=== PATIENT | male | born 1990 | race Caucasian/White ===

== ENCOUNTER 2018-01-19 18:50 | Emergency (ER) | payer BC ==
[~2018-01-19 18:50] MED LIST: NAPROXEN EC500 MG PO
[2018-01-19 19:32] LABS: INFLUENZA A NONE DETECTED (NONE DETECT); INFLUENZA B NONE DETECTED (NONE DETECT)
[2018-01-19 19:35] LABS: HEMATOCRIT 43.9 % (39.0-50.0); HEMOGLOBIN 15.2 g/dl (14.0-18.0); IMMATURE GRANULOCYTES 0.7 % (0.0-1.0); MEAN CELL VOLUME 87.5 fL CALC (80.0-100.0); MEAN CORPUSCULAR HGB 30.3 pG CALC (26.0-32.0); MEAN CORPUSCULAR HGB CONC 34.6 g/L CALC (32.0-36.0); NEUT# 6.19 thou/uL (1.82-7.42); RED BLOOD COUNT 5.02 mill/uL (4.70-6.10); RED CELL DISTRI WIDTH 12.8 % (11.5-15.5)
[2018-01-19 19:48] LABS: URINE BILIRUBIN - DIPSTICK NEGATIVE (NEGATIVE); URINE BLOOD DIPSTICK NEGATIVE (NEGATIVE); URINE COLOR YELLOW; URINE GLUCOSE - DIPSTICK NEGATIVE (NEGATIVE); URINE KETONE TRACE mg/dL (NEGATIVE); URINE LEUK ESTERASE NEGATIVE (NEGATIVE); URINE NITRITE - DIPSTICK NEGATIVE (Negative); URINE PROTEIN - DIPSTICK 30 mg/dL (NEG-TRACE); URINE SPECIFIC GRAVITY >=1.030; URINE UROBILINOGEN - DIPSTICK 0.2 E.U./dL (0.2)
[2018-01-19 19:49] LABS: ALBUMIN 4.9 g/dL (3.2-5.0); ALKALINE PHOSPHATASE 105 u/l (38-126); ANION GAP 20 (6-22 (CALC)); BILIRUBIN, TOTAL 0.8 mg/dL (0.0-1.4); BUN 13 mg/dL (9-20); BUN/CREATININE RATIO 9 (12-20 (CALC)); CARBON DIOXIDE 27 mmol/l (22-30); CHLORIDE 99 mmol/l (95-108); CREATININE 1.4 mg/dL (0.7-1.3); GFR > 60 ML/MIN (>=60 (CALC)); GFR FOR AFR.AMER. > 60 ML/MIN (>=60 (CALC)); POTASSIUM 3.8 mmol/l (3.5-5.1); SGOT/AST 47 u/l (17-59); SGPT/ALT 84 u/l (21-72); SODIUM 142 mmol/l (137-146); TOTAL PROTEIN 9.7 g/dL (6.3-8.2)
[2018-01-19 19:52] LABS: URINE CLARITY CLEAR
[2018-01-19 19:59] LABS: URINE RBC 0-2 RBC/hpf (0-5); URINE WBC 0-2 WBC/hpf (0-5)
[2018-01-19 21:34] VITALS: BP 112/63
== END 2018-01-19 21:41 | disposition home or self-care (01) | DRG 864 ==
LOC: ED 18:50
PROVIDERS: Family Medicine
DX: R50.9 Fever, unspecified (principal); R05 Cough; R53.1 Weakness; R11.10 Vomiting, unspecified; R53.83 Other fatigue

== ENCOUNTER 2019-11-27 | Emergency (ER) | payer BC ==
[2019-11-27] MEDS ORDERED: BENZONATATE200 MG PO (17:21)
[2019-11-27] MEDS ORDERED: BUSPAR10 M1 PO (17:21)
== END 2019-11-27 18:53 | disposition home or self-care (01) | DRG 605 ==
DX: S91.331A Puncture wound without foreign body, right foot, initial encounter (principal); X58.XXXA Exposure to other specified factors, initial encounter; Y93.89 Activity, other specified; Y92.828 Other wilderness area as the place of occurrence of the external cause

== ENCOUNTER 2022-02-23 22:05 | Emergency (ER) | payer BC ==
[~2022-02-23] VITALS: Ht 185.4 cm; Wt 130.0 kg
[~2022-02-23 22:05] MED LIST changes: +BENZONATATE200 MG PO; +BUSPAR10 M1 PO
[2022-02-23 22:14] VITALS: BP 140/85
[2022-02-23] MEDS ORDERED: ZYRTEC10 MG PO (22:25)
[2022-02-23 22:31] VITALS: BP 142/87
[2022-02-23 22:38] LABS: HEMATOCRIT 39.7 % (39.0-50.0); HEMOGLOBIN 13.6 g/dl (14.0-18.0); IMMATURE GRANULOCYTES 0.2 % (0.0-5.0); MEAN CELL VOLUME 85.9 fL CALC (80.0-100.0); MEAN CORPUSCULAR HGB 29.4 pG CALC (26.0-32.0); MEAN CORPUSCULAR HGB CONC 34.3 g/dL CAL (32.0-36.0); NEUT# 4.21 thou/uL (1.82-7.42); RED BLOOD COUNT 4.62 mill/uL (4.70-6.10); RED CELL DISTRI WIDTH 13.1 % (11.5-15.5)
[2022-02-23 22:46] VITALS: BP 134/80
[2022-02-23 22:55] LABS: ALBUMIN 4.3 g/dL (3.2-5.0); ALKALINE PHOSPHATASE 92 u/l (38-126); ANION GAP 14 (6-22 (CALC)); BUN 21 mg/dL (9-20); BUN/CREATININE RATIO 16 (12-20 (CALC)); CARBON DIOXIDE 25 mmol/l (22-30); CHLORIDE 102 mmol/l (95-108); CREATININE 1.3 mg/dL (0.7-1.3); GFR FOR AFR.AMER. > 60 ML/MIN (>=60 (CALC)); GFR OTHER RACES > 60 ML/MIN (>=60 (CALC)); POTASSIUM 3.6 mmol/l (3.5-5.1); SGOT/AST 45 u/l (17-59); SODIUM 137 mmol/l (137-146); TOTAL PROTEIN 8.3 g/dL (6.3-8.2)
[2022-02-23 22:59] LABS: BILIRUBIN, TOTAL 0.4 mg/dL (0.0-1.4)
[2022-02-23 23:01] VITALS: BP 145/86
[2022-02-23 23:07] LABS: MYOGLOBIN 74 ng/mL (0 - 121)
[2022-02-23] MEDS ORDERED: SINGULAIR10 MG PO (23:43)
[2022-02-23 23:45] VITALS: BP 145/86
== END 2022-02-23 23:50 | disposition home or self-care (01) | DRG 204 ==
LOC: ED 22:05
PROVIDERS: Family Medicine
DX: R05.9 Cough, unspecified (principal); R55 Syncope and collapse; T78.40XA Allergy, unspecified, initial encounter; X58.XXXA Exposure to other specified factors, initial encounter; D72.10 Eosinophilia, unspecified; Z20.822 Contact with and (suspected) exposure to COVID-19

== ENCOUNTER 2022-03-11 09:17 | Emergency (ER) | payer OTHER, BC ==
[~2022-03-11] VITALS: Ht 185.4 cm; Wt 129.5 kg
[~2022-03-11 09:17] MED LIST changes: +SINGULAIR10 MG PO; +ZYRTEC10 MG PO
[2022-03-11 09:24] VITALS: BP 139/84
[2022-03-11] MEDS ORDERED: ZPAK PO (09:27)
[2022-03-11] MEDS ORDERED: MEDDOSEPAK PO (09:27)
[2022-03-11 09:31] VITALS: BP 129/82
[2022-03-11] MEDS ORDERED: DOXY-CAPS100 MG PO (09:46)
[2022-03-11 10:01] VITALS: BP 130/93
[2022-03-11 10:31] VITALS: BP 143/82
[2022-03-11 11:01] VITALS: BP 113/72
[2022-03-11 11:10] VITALS: BP 113/72
== END 2022-03-11 11:10 | disposition home or self-care (01) | DRG 605 ==
LOC: ED 09:17
PROC: 0HQLXZZ Repair Left Lower Leg Skin, External Approach (ICD-10-PCS; principal; 2022-03-11)
DX: S71.112A Laceration without foreign body, left thigh, initial encounter (principal); F41.9 Anxiety disorder, unspecified; F17.290 Nicotine dependence, other tobacco product, uncomplicated; W31.1XXA Contact with metalworking machines, initial encounter; Y93.89 Activity, other specified; Y92.149 Unspecified place in prison as the place of occurrence of the external cause; Y99.0 Civilian activity done for income or pay

== ENCOUNTER 2022-07-10 20:44 | Emergency (ER) | payer BC ==
[~2022-07-10] VITALS: Ht 185.4 cm; Wt 134.1 kg
[~2022-07-10 20:44] MED LIST changes: +DOXY-CAPS100 MG PO; +MEDDOSEPAK PO; +ZPAK PO
[2022-07-10 20:51] VITALS: BP 130/79
[2022-07-10 21:06] LABS: HEMATOCRIT 41.9 % (39.0-50.0); HEMOGLOBIN 14.3 g/dl (14.0-18.0); IMMATURE GRANULOCYTES 0.3 % (0.0-5.0); MEAN CELL VOLUME 87.1 fL CALC (80.0-100.0); MEAN CORPUSCULAR HGB 29.7 pG CALC (26.0-32.0); MEAN CORPUSCULAR HGB CONC 34.1 g/dL CAL (32.0-36.0); NEUT# 5.89 thou/uL (1.82-7.42); RED BLOOD COUNT 4.81 mill/uL (4.70-6.10)
[2022-07-10 21:19] LABS: ALBUMIN 4.7 g/dL (3.2-5.0); ALKALINE PHOSPHATASE 104 u/l (38-126); ANION GAP 17 (6-22 (CALC)); BILIRUBIN, TOTAL 0.4 mg/dL (0.0-1.4); BUN 15 mg/dL (9-20); BUN/CREATININE RATIO 13 (12-20 (CALC)); CARBON DIOXIDE 25 mmol/l (22-30); CHLORIDE 104 mmol/l (95-108); CREATININE 1.2 mg/dL (0.7-1.3); GFR FOR AFR.AMER. > 60 ML/MIN (>=60 (CALC)); GFR OTHER RACES > 60 ML/MIN (>=60 (CALC)); SGOT/AST 54 u/l (17-59); SODIUM 141 mmol/l (137-146); TOTAL PROTEIN 8.4 g/dL (6.3-8.2)
[2022-07-10] MEDS ORDERED: SILVADENE1 % EX (21:47)
[2022-07-10] MEDS ORDERED: DOXYCYCL HYC100 M4 PO (21:47)
[2022-07-10] MEDS ORDERED: LORTAB 1010 MG PO (21:47)
[2022-07-10 22:10] VITALS: BP 130/79
== END 2022-07-10 22:10 | disposition home or self-care (01) | DRG 935 ==
LOC: ED 20:44
PROVIDERS: Emergency Medicine
DX: T22.212A Burn of second degree of left forearm, initial encounter (principal); W38.XXXA Explosion and rupture of other specified pressurized devices, initial encounter
CPT/HCPCS: J1956

== ENCOUNTER 2022-10-07 21:48 | Emergency (ER) | payer BC ==
[~2022-10-07] VITALS: Ht 185.4 cm; Wt 131.0 kg
[~2022-10-07 21:48] MED LIST changes: +DOXYCYCL HYC100 M4 PO; +LORTAB 1010 MG PO; +SILVADENE1 % EX
[2022-10-07 22:25] VITALS: BP 129/85
[2022-10-07 22:45] VITALS: BP 122/75
[2022-10-07 23:00] VITALS: BP 130/78
[2022-10-07 23:16] VITALS: BP 121/75
[2022-10-08 01:05] VITALS: BP 153/103
== END 2022-10-07 23:51 | disposition home or self-care (01) | DRG 206 ==
LOC: ED 21:48
DX: S27.892A Contusion of other specified intrathoracic organs, initial encounter (principal); W18.30XA Fall on same level, unspecified, initial encounter; F41.9 Anxiety disorder, unspecified

== ENCOUNTER 2023-02-09 19:07 | Emergency (ER) | payer BC ==
[~2023-02-09] VITALS: Ht 185.4 cm; Wt 134.0 kg
[2023-02-09 19:20] VITALS: BP 114/65
[2023-02-09 19:30] VITALS: BP 116/66
[2023-02-09 19:50] LABS: BASO% 0.5 % (0-3); EOS% 5.2 % (0-8); HEMATOCRIT 38.6 % (39.0-50.0); HEMOGLOBIN 12.6 g/dl (14.0-18.0); IMMATURE GRANULOCYTES 0.3 % (0.0-5.0); LYMPH% 14.6 % (15-41); MEAN CELL VOLUME 88.3 fL CALC (80.0-100.0); MEAN CORPUSCULAR HGB 28.8 pG CALC (26.0-32.0); MEAN CORPUSCULAR HGB CONC 32.6 g/dL CAL (32.0-36.0); MONO% 10.1 % (2-13); NEUT# 8.18 thou/uL (1.82-7.42); NEUT% 69.3 % (42-76); RED BLOOD COUNT 4.37 mill/uL (4.70-6.10)
[2023-02-09 20:06] LABS: ALBUMIN 4.8 g/dL (3.2-5.0); ALKALINE PHOSPHATASE 85 u/l (38-126); ANION GAP 14 (6-22 (CALC)); BILIRUBIN, TOTAL 0.6 mg/dL (0.2-1.3); BUN 14 mg/dL (9-20); BUN/CREATININE RATIO 11 (12-20 (CALC)); CARBON DIOXIDE 26 mmol/l (22-30); CHLORIDE 100 mmol/l (95-108); CREATININE 1.3 mg/dL (0.7-1.3); ETHYL ALCOHOL 0 mg/dl (0-30); GFR FOR AFR.AMER. > 60 ML/MIN (>=60 (CALC)); GFR OTHER RACES > 60 ML/MIN (>=60 (CALC)); SGOT/AST 48 u/l (17-59); SODIUM 136 mmol/l (137-146); TOTAL PROTEIN 8.9 g/dL (6.3-8.2)
[2023-02-09 20:13] LABS: URINE BILIRUBIN - DIPSTICK NEGATIVE (NEGATIVE); URINE BLOOD DIPSTICK NEGATIVE (NEGATIVE); URINE COLOR YELLOW; URINE GLUCOSE - DIPSTICK NEGATIVE (NEGATIVE); URINE KETONE NEGATIVE (NEGATIVE); URINE LEUK ESTERASE NEGATIVE (NEGATIVE); URINE PROTEIN - DIPSTICK NEGATIVE (NEG-TRACE); URINE SPECIFIC GRAVITY 1.025; URINE UROBILINOGEN - DIPSTICK 0.2 E.U./dL (0.2)
[2023-02-09 20:15] LABS: URINE NITRITE - DIPSTICK NEGATIVE (Negative)
[2023-02-09 21:53] VITALS: BP 116/66
== END 2023-02-09 22:46 | disposition home or self-care (01) | DRG 101 ==
LOC: ED 19:07
PROVIDERS: Family Medicine
DX: R56.9 Unspecified convulsions (principal); R50.9 Fever, unspecified; J02.0 Streptococcal pharyngitis; F41.9 Anxiety disorder, unspecified; F17.200 Nicotine dependence, unspecified, uncomplicated; Z20.822 Contact with and (suspected) exposure to COVID-19

== ENCOUNTER 2023-03-01 09:46 | Emergency (ER) | payer OTHER, BC ==
[~2023-03-01] VITALS: Ht 185.4 cm; Wt 134.0 kg
[2023-03-01 09:58] VITALS: BP 130/78
[2023-03-01 10:01] VITALS: BP 126/81
[2023-03-01 10:21] VITALS: BP 137/77
[2023-03-01 10:41] VITALS: BP 120/76
[2023-03-01] MEDS ORDERED: METHOCARBAMOL500 MG PO (14:08)
[2023-03-01] MEDS ORDERED: IBUPROFEN600 MG PO (14:08)
[2023-03-01 14:56] VITALS: BP 120/76
== END 2023-03-01 15:19 | disposition home or self-care (01) | DRG 605 ==
LOC: ED 09:46
DX: S00.03XA Contusion of scalp, initial encounter (principal); M25.561 Pain in right knee; S60.419A Abrasion of unspecified finger, initial encounter; F41.9 Anxiety disorder, unspecified; F17.200 Nicotine dependence, unspecified, uncomplicated; V59.40XA Driver of pick-up truck or van injured in collision with unspecified motor vehicles in traffic accident, initial encounter

== ENCOUNTER 2024-07-05 20:57 | Emergency (ER) | payer OTHER, BC ==
[~2024-07-05] VITALS: Ht 185.4 cm; Wt 142.0 kg
[~2024-07-05 20:57] MED LIST changes: +IBUPROFEN600 MG PO; +METHOCARBAMOL500 MG PO
[2024-07-05] MEDS ORDERED: ACETAMINOPHEN 500 MG TAB PO ONE (21:35)
[2024-07-05 23:00] VITALS: BP 146/87
== END 2024-07-05 23:07 | disposition home or self-care (01) | DRG 914 ==
LOC: ED 20:57
DX: S09.90XA Unspecified injury of head, initial encounter (principal); F41.9 Anxiety disorder, unspecified; V49.40XA Driver injured in collision with unspecified motor vehicles in traffic accident, initial encounter; Z72.0 Tobacco use